=== PATIENT | male | born 1960 | race Caucasian/White ===

== ENCOUNTER 2023-03-17 17:20 | Emergency (ER) | payer OTHER ==
[2023-03-17] MEDS: Diphtheria,Pertussis(Acell),Tetanus Vaccine 0.5 ML Syringe IM ONE (17:40)
[2023-03-17] MEDS: Lidocaine 1% 10 ML MDV INJECT ONE (17:40)
== END 2023-03-17 18:36 | disposition home or self-care (01) ==
LOC: VM.ED 17:20
DX: S61.217A Laceration without foreign body of left little finger without damage to nail, initial encounter (principal); S61.012A Laceration without foreign body of left thumb without damage to nail, initial encounter; Z23 Encounter for immunization; Z88.0 Allergy status to penicillin; W29.3XXA Contact with powered garden and outdoor hand tools and machinery, initial encounter
CPT/HCPCS: 12002; 90471; 90715; 99282-25; 99283; J3490